=== PATIENT | male | born 1980 | race American Indian/Alaskan Native ===

== ENCOUNTER 2017-06-24 17:06 | Emergency (ER) | payer OTHER ==
[2017-06-24 18:08] VITALS: BP 114/73
[2017-06-24] MEDS ORDERED: MOTRIN PO ONE (18:08)
[2017-06-24] MEDS ORDERED: LIDOCAINE VISCOUS 2% PO ONE (21:33)
--- NOTE | 2017-06-24 21:33 | Emergency Department Report ---
ED ENT HPI - General Chief complaint: Sore Throat Stated complaint: THROAT SWELLING Time Seen by Provider: 06/24/17 21:33 Source: patient Mode of arrival: Ambulatory Limitations: No Limitations - History of Present Illness Initial comments: This is a 37-year-old male nontoxic, well nourished in appearance, no acute signs of distress presents to the ED with c/o of sore throat 2 days. Patient stated it is difficult for him to swallow S to pain. Patient describes sore throat as sensation as swallowing razor blades. Patient denies any recent travels, long car. Patient denies any sick contacts. Patient denies any drooling, hoarseness, fever, chest pain, shortness of breathe, chills, nausea, vomiting, headache or stiff neck. She denies any allergies or significant past medical history. MD complaint: sore throat -: days(s) (2) Location: throat Severity: mild Severity scale (0 -10): 8 Consistency: constant Improves with: none Worsens with: swallowing Associated Symptoms: pain with swallowing, sore throat. denies: fever, cough, gum swelling, toothache, tinnitus, hearing loss, discharge from ear, rhinorrhea - Related Data Previous Rx's Medication Instructions Recorded Last Taken Type Clindamycin [Clindamycin CAP] 300 mg PO Q8H 7 Days cap 06/24/17 Unknown Rx Ibuprofen [Motrin] 600 mg PO Q8H PRN #30 tablet 06/24/17 Unknown Rx Nystas/Diphen/Xyl Visc/Mylanta 15 ml MM Q4H PRN 7 Days ml 06/24/17 Unknown Rx [Magic Mouthwash] Allergies Allergy/AdvReac Type Severity Reaction Status Date / Time No Known Allergies Allergy Verified 06/24/17 21:38 ED Dental HPI - General Chief complaint: Sore Throat Stated complaint: THROAT SWELLING Time Seen by Provider: 06/24/17 21:33 Source: patient Mode of arrival: Ambulatory Limitations: No Limitations - Related Data Previous Rx's Medication Instructions Recorded Last Taken Type Clindamycin [Clindamycin CAP] 300 mg PO Q8H 7 Days cap 06/24/17 Unknown Rx Ibuprofen [Motrin] 600 mg PO Q8H PRN #30 tablet 06/24/17 Unknown Rx Nystas/Diphen/Xyl Visc/Mylanta 15 ml MM Q4H PRN 7 Days ml 06/24/17 Unknown Rx [Magic Mouthwash] Allergies Allergy/AdvReac Type Severity Reaction Status Date / Time No Known Allergies Allergy Verified 06/24/17 21:38 ED Review of Systems ROS: Stated complaint: THROAT SWELLING Other details as noted in HPI Constitutional: denies: chills, fever Eyes: denies: eye pain, eye discharge, vision change ENT: throat pain. denies: ear pain Respiratory: denies: cough, shortness of breath, wheezing Cardiovascular: denies: chest pain, palpitations Endocrine: no symptoms reported Gastrointestinal: denies: abdominal pain, nausea, diarrhea Genitourinary: denies: urgency, dysuria Musculoskeletal: denies: back pain, joint swelling, arthralgia Skin: denies: rash, lesions Neurological: denies: headache, weakness, paresthesias Psychiatric: denies: anxiety, depression Hematological/Lymphatic: denies: easy bleeding, easy bruising ED Past Medical Hx - Past Medical History Previous Medical History?: No - Surgical History Additional Surgical History: jaw - Social History Smoking Status: Current Every Day Smoker Substance Use Type: None - Medications Home Medications: Home Medications Medication Instructions Recorded Confirmed Last Taken Type Clindamycin [Clindamycin CAP] 300 mg PO Q8H 7 Days cap 06/24/17 Unknown Rx Ibuprofen [Motrin] 600 mg PO Q8H PRN #30 tablet 06/24/17 Unknown Rx Nystas/Diphen/Xyl Visc/Mylanta 15 ml MM Q4H PRN 7 Days ml 06/24/17 Unknown Rx [Magic Mouthwash] ED Physical Exam - General Limitations: No Limitations General appearance: alert, in no apparent distress - Head Head exam: Present: atraumatic, normocephalic - Eye Eye exam: Present: normal appearance Pupils: Present: normal accommodation - ENT ENT exam: Present: mucous membranes moist, TM's normal bilaterally, normal external ear exam - Expanded ENT Exam Expanded Ear exam: Present: normal external inspection Mouth exam: Present: normal external inspection, tongue normal. Absent: drooling, trismus, muffled voice, tongue elevation, laceration Teeth exam: Present: normal inspection Throat exam: Positive: tonsillar erythema, tonsillomegaly (2+), tonsillar exudate, other (Uvula midline. No abscess or swelling noted. ). Negative: R peritonsillar mass, L peritonsillar mass - Neck Neck exam: Present: normal inspection, full ROM, lymphadenopathy (bilateral tonsillar). Absent: tenderness, meningismus, thyromegaly - Respiratory Respiratory exam: Present: normal lung sounds bilaterally. Absent: respiratory distress, wheezes, rales, rhonchi, stridor, chest wall tenderness, accessory muscle use, decreased breath sounds, prolonged expiratory - Cardiovascular Cardiovascular Exam: Present: regular rate, normal rhythm, normal heart sounds. Absent: bradycardia, tachycardia, irregular rhythm, systolic murmur, diastolic murmur, rubs, gallop - GI/Abdominal GI/Abdominal exam: Present: soft, normal bowel sounds - Rectal Rectal exam: Present: deferred - Extremities Exam Extremities exam: Present: normal inspection, full ROM, normal capillary refill - Back Exam Back exam: Present: normal inspection, full ROM - Neurological Exam Neurological exam: Present: alert, oriented X3, normal gait - Psychiatric Psychiatric exam: Present: normal affect, normal mood - Skin Skin exam: Present: warm, dry, intact, normal color. Absent: rash ED Course Vital Signs 06/24/17 18:05 Temperature 98.2 F Pulse Rate 78 Respiratory 18 Rate Blood Pressure 114/73 O2 Sat by Pulse 98 Oximetry - Reevaluation(s) Reevaluation #1: 06/24/17 22:09 Patient is speaking in full sentences with no signs of distress noted. Critical care attestation.: If time is entered above; I have spent that time in minutes in the direct care of this critically ill patient, excluding procedure time. ED Disposition Clinical Impression: Tonsillitis with exudate Disposition: DC-01 TO HOME OR SELFCARE Is pt being admited?: No Does the pt Need Aspirin: No Condition: Stable Instructions: Tonsillitis (ED), Clindamycin (By mouth) Additional Instructions: Follow-up with a primary care doctor in 3-5 days or if symptoms worsen and continue return to emergency room as soon as possible. Prescriptions: Clindamycin [Clindamycin CAP] 300 mg PO Q8H 7 Days cap Ibuprofen [Motrin] 600 mg PO Q8H PRN #30 tablet PRN Reason: Pain Nystas/Diphen/Xyl Visc/Mylanta [Magic Mouthwash] 15 ml MM Q4H PRN 7 Days ml PRN Reason: Sore Throat Referrals: ALESSIA BASURTO MD [Primary Care Provider] - 3-5 Days PRIMARY CARE, [Referring] - 3-5 Days [facility] [Outside] - 3-5 Days Forms: Work/School Release Form(ED)
[2017-06-24] MEDS ORDERED: CLEOCIN IM ONE (21:52)
== END 2017-06-24 22:30 | disposition home or self-care (01) ==
LOC: ED 17:06
DX: J03.90 Acute tonsillitis, unspecified (principal); F17.200 Nicotine dependence, unspecified, uncomplicated
CPT/HCPCS: 96372; 99282

== ENCOUNTER 2020-08-27 06:42 | Emergency (ER) | payer SELFPAY ==
[2020-08-27] MEDS ORDERED: levETIRAcetam 1000 MG/NS 0.75% 1,000 MG/100 ML BAG IV ONE (07:39)
--- NOTE | 2020-08-27 07:55 | Emergency Department Report ---
HPI - General Chief Complaint: Neuro Symptoms/Deficit Time Seen by Provider: 08/27/20 07:38 - HPI HPI: Room 18 The patient is a 40-year-old male present with a chief complaint of seizures. The patient states he is amnestic to the events. Patient states his last memory includes watching television and then waking up with EMS around him. Patient's states that they went to bed and at approximate 04: 40 the patient entire body stiffened and he convulsed and this lasted approximately 10 minutes. She states the patient then went back to sleep and approximately 1 hour later 05: 40 had a second episode which lasted approximately 15 minutes and the patient has saliva coming from his mouth. Patient currently feels asymptomatic and denies having any complaints. Spouse states the patient had a similar episode last year but never sought medical attention. ED Past Medical Hx - Past Medical History Previous Medical History?: Yes Hx Asthma: Yes (As a child, no issues in adulthood) - Surgical History Past Surgical History?: Yes Additional Surgical History: jaw - Family History Family history: no significant - Social History Smoking Status: Current Every Day Smoker (1/2) Substance Use Type: None (Denies illicit drug use), Alcohol (Occasionally on the weekends) - Medications Home Medications: Home Medications Medication Instructions Recorded Confirmed Last Taken Type Ibuprofen [Motrin] 600 mg PO Q8H PRN #30 tablet 06/24/17 08/27/20 Unknown Rx Butalb/Acetamin/Caff 50-325-40 2 tab PO Q8HR PRN #10 tablet 08/27/20 Unknown Rx [Fioricet 50-325-40] levETIRAcetam [Keppra TAB] 500 mg PO BID #90 tablet 08/27/20 Unknown Rx ED Review of Systems ROS: Stated complaint: SEIZURE Other details as noted in HPI Constitutional: no symptoms reported Eyes: denies: eye pain ENT: denies: throat pain Respiratory: no symptoms reported Cardiovascular: denies: chest pain Endocrine: no symptoms reported Gastrointestinal: denies: abdominal pain Genitourinary: denies: dysuria Musculoskeletal: denies: back pain Neurological: denies: headache Physical Exam - Physical Exam Vital Signs: Vital Signs 08/27/20 08/27/20 08/27/20 06:44 06:48 07:33 Temperature 98.5 F 98.4 F Pulse Rate 95 H 76 Respiratory 18 15 Rate Blood Pressure 114/74 Blood Pressure 117/80 [Right] O2 Sat by Pulse 100 99 Oximetry 08/27/20 07:40 Temperature 98.4 F Pulse Rate 76 Respiratory 15 Rate Blood Pressure Blood Pressure 114/74 [Right] O2 Sat by Pulse 99 Oximetry Physical Exam: GENERAL: The patient is well-developed well-nourished male lying on stretcher not appearing to be in acute distress. [] HEENT: Normocephalic. Atraumatic. Extraocular motions are intact. Patient has moist mucous membranes. NECK: Supple. No meningitic signs are noted. Trachea midline CHEST/LUNGS: Clear to auscultation. There is no respiratory distress noted. HEART/CARDIOVASCULAR: Regular. There is no tachycardia. There is no gallop rub or murmur. ABDOMEN: Abdomen is soft, nontender. Patient has normal bowel sounds. There is no abdominal distention. SKIN: There is no rash. There is no edema. There is no diaphoresis. NEURO: The patient is awake, alert, and oriented. The patient is cooperative. The patient has no focal neurologic deficits. The patient has normal speech. Cranial nerves II through XII grossly intact. GCS 15 MUSCULOSKELETAL: There is no evidence of acute injury. ED Course Vital Signs 08/27/20 08/27/20 08/27/20 06:44 06:48 07:33 Temperature 98.5 F 98.4 F Pulse Rate 95 H 76 Respiratory 18 15 Rate Blood Pressure 114/74 Blood Pressure 117/80 [Right] O2 Sat by Pulse 100 99 Oximetry 08/27/20 07:40 Temperature 98.4 F Pulse Rate 76 Respiratory 15 Rate Blood Pressure Blood Pressure 114/74 [Right] O2 Sat by Pulse 99 Oximetry - Reevaluation(s) Reevaluation #1: 08/27/20 10:14 Patient had a generalized tonic-clonic seizure prior to Keppra administration. Patient was postictal but now awake. Patient states he has a slight headache. CT scan and labs reviewed with patient and family. Importance of follow-up with a neurologist for clearance prior to resuming driving or operating heavy machinery was stressed ED Medical Decision Making - Lab Data Result diagrams: 08/27/20 07:50 Laboratory Tests 08/27/20 08/27/20 07:50 09:55 Sodium 136 L Potassium 4.5 Chloride 98.2 Carbon Dioxide 26 Anion Gap 16 BUN 10 Creatinine 0.9 Estimated GFR > 60 BUN/Creatinine Ratio 11 Glucose 95 Calcium 9.4 Magnesium 2.30 Total Creatine Kinase 260 H CK-MB (CK-2) 2.0 CK-MB (CK-2) Rel Index 0.7 Urine Opiates Screen Negative Urine Methadone Screen Negative Ur Barbiturates Screen Negative Ur Phencyclidine Scrn Negative Ur Amphetamines Screen Negative U Benzodiazepines Scrn Negative Urine Cocaine Screen Negative U Marijuana (THC) Screen Negative - EKG Data -: EKG Interpreted by Ms EKG shows normal: sinus rhythm Rate: tachycardia (106 bpm) - EKG Data When compared to previous EKG there are: previous EKG unavailable Interpretation: other (No ischemic changes seen) - Radiology Data Radiology results: report reviewed (CT head), image reviewed (CT head) [facility] [address] [place] [address] Cat Scan Report Signed Patient: CANDIDO TRAYLOR MR#: [id number] : 1980 Acct:[id number] Age/Sex: 40 / M ADM Date: 08/27/20 Loc: ED Attending Dr: Ordering Physician: DENNYS SKINNER MD Date of Service: 08/27/20 Procedure(s): CT head/brain wo con Accession Number(s): [id number] cc: DENNYS SKINNER MD CT HEAD WITHOUT CONTRAST INDICATION: Seizure-like activity. TECHNIQUE: All CT scans at this location are performed using CT dose reduction for ALARA by means of automated exposure control. COMPARISON: None available. FINDINGS: HEMORRHAGE: None. EXTRA-AXIAL SPACES: Normal in size and morphology for the patient's age. VENTRICULAR SYSTEM: Normal in size and morphology for the patient's age. BRAIN PARENCHYMA: No acute findings. MIDLINE SHIFT OR HERNIATION: None. ORBITS: Normal as visualized. SOFT TISSUES OF HEAD: Normal. CALVARIUM: Normal. VISUALIZED PARANASAL SINUSES AND MASTOID AIR CELLS: Clear. ADDITIONAL FINDINGS: None. IMPRESSION: 1. No acute intracranial abnormality. Signer Name: Malcolm Villa MD Signed: 08/27/2020 8:58 AM Workstation Name: [id number] Transcribed By: CECI Dictated By: Malcolm Villa MD Electronically Authenticated By: Malcolm Villa MD Signed Date/Time: 08/27/20 0858 DD/ TD/TT: Print Cancel - Differential Diagnosis Epilepsy, intracranial mass, ICH, electrolyte abnormality Critical care attestation.: If time is entered above; I have spent that time in minutes in the direct care of this critically ill patient, excluding procedure time. ED Disposition Clinical Impression: Seizures Disposition: DC-01 TO HOME OR SELFCARE Is pt being admited?: No Does the pt Need Aspirin: No Condition: Stable Instructions: Epilepsy, [id number], Seizure, Adult, [id number] Additional Instructions: You should not drive, operate heavy machinery or swim unattended until you are cleared by a neurologist. Return to the emergency department should you develop worsening symptoms, inability to tolerate food or liquids, high fever or any other concerns Prescriptions: Butalb/Acetamin/Caff 50-325-40 [Fioricet 50-325-40] 2 tab PO Q8HR PRN #10 tablet PRN Reason: Headache levETIRAcetam [Keppra TAB] 500 mg PO BID #90 tablet Referrals: ROSE RICO MD [Staff Physician] - [facility] (Dr. Rico is a neurologist. Please follow-up with him for further evaluation. You should not drive, operate heavy machinery or swim unattended until you are cleared by a neurologist) Time of Disposition: 10:17
[2020-08-27] MEDS ORDERED: LORazepam 2 MG/ML VIAL ONE (08:05)
[2020-08-27] MEDS ORDERED: SODIUM CHLORIDE 0.9% 1000 ML 1,000 ML IV ONE (08:08)
[2020-08-27] MEDS ORDERED: LORazepam 2 MG/ML VIAL IV ONE (08:08)
--- NOTE | 2020-08-27 09:02 | Cat Scan Report ---
CT HEAD WITHOUT CONTRAST INDICATION: Seizure-like activity. TECHNIQUE: All CT scans at this location are performed using CT dose reduction for ALARA by means of automated e xposure control. COMPARISON: None available. FINDINGS: HEMORRHAGE: None. EXTRA-AXIAL SPACES: Normal in size and morphology for the patient's age. VENTRICULAR SYSTEM: Normal in size and morphology for the patient's age. BRAIN PARENCHYMA: No acute findings. MIDLINE SHIFT OR HERNIATION: None. ORBITS: Normal as visualized. SOFT TISSUES OF HEAD: Normal. CALVARIUM: Normal. VISUALIZED PARANASAL SINUSES AND MASTOID AIR CELLS: Clear. ADDITIONAL FINDINGS: None. IMPRESSION: 1. No acute intracranial abnormality. Signer Name: Malcolm Villa MD Signed: 08/27/2020 8:58 AM Workstation Name: [id number]
[2020-08-27 09:03] VITALS: BP 120/79
[2020-08-27 09:05] LABS: BUN/Creatinine Ratio 11; Blood Urea Nitrogen 10 mg/dL (9-20); Calcium 9.4 mg/dL (8.4-10.2); Hemolysis Index 11
[2020-08-27 10:09] LABS: Amphetamine Screen,Urine Negative; Benzodiazepines Screen,Urine Negative; Cannabinoid Screen,Urine Negative; Cocaine Screen,Urine Negative; Methadone Screen,Urine Negative; Opiate Screen,Urine Negative
[2020-08-27] MEDS ORDERED: BUTALB/ACETAMINOPHEN/CAFFEINE TAB PO ONE (10:14)
--- NOTE | 2020-08-30 09:48 | Electrocardiograph Report ---
[facility] Test Date: 2020-08-27 Test Time: 08:21:53 Pat Name: CANDIDO TRAYLOR Department: Room: Gender: M Environmental Programs Manager: MARIAM : 1980 Requested By: DENNYS SKINNER Order Number: [id number] Reading MD: Jr Moreira Measurements Intervals [place] Rate: 106 P: NC: QRS: 40 QRSD: 82 T: 39 QT: 347 QTc: 462 Interpretive Statements Junctional tachycardia No previous ECG available for comparison Electronically Signed On 08-30-2020 9:47:54 EDT by Jr Moreira
== END 2020-08-27 11:20 | disposition home or self-care (01) ==
LOC: ED 06:42
DX: R56.9 Unspecified convulsions (principal); J45.909 Unspecified asthma, uncomplicated; F17.200 Nicotine dependence, unspecified, uncomplicated; Z79.899 Other long term (current) drug therapy
CPT/HCPCS: 36415; 70450; 80048; 80307; 82550; 82553; 83735; 93005; 96361; 96365; 96375; 99284; J1953; J2060; J7030

== ENCOUNTER 2021-02-17 16:20 | Emergency (ER) | payer SELFPAY ==
[2021-02-17] MEDS ORDERED: levETIRAcetam 1000 MG/NS 0.75% 1,000 MG/100 ML BAG IV ONE ×2 (16:48)
--- NOTE | 2021-02-17 16:51 | Emergency Department Report ---
ED General Adult HPI - General Chief complaint: Seizure Stated complaint: seizures PUI?: No Time Seen by Provider: 02/17/21 16:29 Source: patient, EMS ( EMS documentation not available at time of chart dictation ), RN notes reviewed, old records reviewed Mode of arrival: Stretcher Limitations: No Limitations - History of Present Illness Initial comments: Patient is a 40-year-old gentleman. He is not known to myself previously. He believes that he has a history of seizure disorder. He was seen in this department a few months ago for seizure/convulsion. He had an unremarkable laboratory work-up, an unremarkable noncontrast CT scan of the brain, and was discharged with Keppra. He is brought to the hospital today with a complaint of painless seizures. They are now resolved. Patient was given prescription for Keppra, but he has not been taking Keppra because he did not think he had to take it every day. Patient does not have an outpatient neurologist or primary care doctor that he is aware of. He occasionally smokes cigarettes, and drinks alcohol. He denies recreational drugs. At the moment, he denies all physical pain. He denies cough and congestion as well as urinary symptoms. He is asking to be discharged at this time. Last convulsion was a few months ago. -: Sudden Severity scale (0 -10): 0 Consistency: now resolved Improves with: none Worsens with: none Associated Symptoms: denies other symptoms - Related Data Previous Rx's Medication Instructions Recorded Last Taken Type Ibuprofen [Motrin] 600 mg PO Q8H PRN #30 tablet 06/24/17 Unknown Rx levETIRAcetam [Keppra TAB] 500 mg PO BID #60 tablet 02/17/21 Unknown Rx Allergies Allergy/AdvReac Type Severity Reaction Status Date / Time No Known Allergies Allergy Verified 06/24/17 21:38 ED Review of Systems ROS: Stated complaint: seizures Other details as noted in HPI Comment: All other systems reviewed and negative Neurological: other (Seizures, now resolved) ED Past Medical Hx - Past Medical History Previous Medical History?: Yes Hx Seizures: Yes Hx Asthma: Yes (As a child, no issues in adulthood) - Surgical History Past Surgical History?: Yes Additional Surgical History: jaw - Social History Smoking Status: Current Every Day Smoker Substance Use Type: Alcohol - Medications Home Medications: Home Medications Medication Instructions Recorded Confirmed Last Taken Type Ibuprofen [Motrin] 600 mg PO Q8H PRN #30 tablet 06/24/17 08/27/20 Unknown Rx levETIRAcetam [Keppra TAB] 500 mg PO BID #60 tablet 02/17/21 Unknown Rx ED Physical Exam - General Limitations: No Limitations General appearance: alert, in no apparent distress - Head Head exam: Present: atraumatic, normocephalic - Eye Eye exam: Present: normal appearance, PERRL, EOMI. Absent: nystagmus - ENT ENT exam: Present: normal exam, normal orophraynx, mucous membranes moist, normal external ear exam - Neck Neck exam: Present: normal inspection, full ROM. Absent: tenderness, meningismus - Respiratory Respiratory exam: Present: normal lung sounds bilaterally. Absent: respiratory distress, wheezes, rales, rhonchi, stridor, decreased breath sounds - Cardiovascular Cardiovascular Exam: Present: regular rate, normal rhythm, normal heart sounds. Absent: bradycardia, tachycardia, irregular rhythm, systolic murmur, diastolic murmur, rubs, gallop - GI/Abdominal GI/Abdominal exam: Present: soft. Absent: distended, tenderness, guarding, rebound, rigid, pulsatile mass - Rectal Rectal exam: Present: deferred - Extremities Exam Extremities exam: Present: normal inspection, full ROM, other (2+ pulses noted in the bilateral upper and lower extremities. There is no palpable cord. negative Homans sign. Muscular compartments are soft. The pelvis is stable.). Absent: pedal edema, calf tenderness - Back Exam Back exam: Present: normal inspection, full ROM. Absent: tenderness, CVA tenderness (R), CVA tenderness (L), paraspinal tenderness, vertebral tenderness - Neurological Exam Neurological exam: Present: alert, oriented X3, normal gait, other (No facial droop. Tongue midline. Extraocular movements intact bilaterally. Facial sensation intact to light touch in V1, V2, V3 distribution bilaterally. 5 and a 5 strength in 4 extremities. Sensation intact to light touch in 4 extremities.). Absent: motor sensory deficit - Psychiatric Psychiatric exam: Present: normal affect, normal mood - Skin Skin exam: Present: warm, dry, intact, normal color. Absent: rash ED Course Vital Signs 02/17/21 02/17/21 02/17/21 16:23 16:38 16:39 Temperature 99 F Pulse Rate 72 84 Respiratory 18 10 L 14 Rate Blood Pressure Blood Pressure 128/88 [Left] O2 Sat by Pulse 96 98 Oximetry 02/17/21 02/17/21 02/17/21 16:46 17:00 17:30 Temperature Pulse Rate 90 78 79 Respiratory 11 L 15 16 Rate Blood Pressure 122/77 129/87 124/84 Blood Pressure [Left] O2 Sat by Pulse 99 97 98 Oximetry 02/17/21 02/17/21 18:00 18:30 Temperature Pulse Rate 78 81 Respiratory 23 13 Rate Blood Pressure 119/81 123/81 Blood Pressure [Left] O2 Sat by Pulse 98 99 Oximetry ED Medical Decision Making - Lab Data Vital Signs 02/17/21 02/17/21 02/17/21 16:23 16:38 16:39 Temperature 99 F Pulse Rate 72 84 Respiratory 18 10 L 14 Rate Blood Pressure Blood Pressure 128/88 [Left] O2 Sat by Pulse 96 98 Oximetry 02/17/21 02/17/21 02/17/21 16:46 17:00 17:30 Temperature Pulse Rate 90 78 79 Respiratory 11 L 15 16 Rate Blood Pressure 122/77 129/87 124/84 Blood Pressure [Left] O2 Sat by Pulse 99 97 98 Oximetry 02/17/21 02/17/21 18:00 18:30 Temperature Pulse Rate 78 81 Respiratory 23 13 Rate Blood Pressure 119/81 123/81 Blood Pressure [Left] O2 Sat by Pulse 98 99 Oximetry Lab Results 02/17/21 Range/Units 17:16 POC Glucose 99 (70-105) mg/dL - EKG Data -: EKG Interpreted by Vt EKG shows normal: sinus rhythm Rate: normal - EKG Data 02/17/21 19:28 EKG is interpreted by myself at 16: 57 Sinus rhythm, 75 bpm. Normal axis, normal intervals, high left ventricular voltage, and motion artifact. Abnormal EKG. Not a STEMI. - Radiology Data Radiology results: pending, report reviewed, image reviewed Prior noncontrast CT scan of the brain reviewed and appreciated, negative for acute findings - Medical Decision Making Differential diagnosis, including but not limited to: Seizure, noncompliance, medication refill Assessment and plan: 40-year-old gentleman, who was afebrile, with reassuring vital signs, clinically sober, with a GCS of 15, NIH score of 0, who is awake, alert, oriented, walks with a steady gait, denies physical pain, chest pain abdominal pain, observed in this ER for hours after convulsive event, as per review of old documentation and charting, has had prior events, but has not recently followed up with outpatient primary care and/or neurology. Patient counseled as to the importance of remaining compliant with seizure medication. Counseled to not drive or operate motor vehicles for the next 6 months. He is low with 2 g of Keppra here in the emergency room. He will be discharged with prescription for Keppra. Counseled to follow-up with outpatient primary care, and/or neurology. Return precautions reviewed. All questions answered. Accu- Chek acceptable and within normal limits. Patient asking to be discharged at this time Critical care attestation.: If time is entered above; I have spent that time in minutes in the direct care of this critically ill patient, excluding procedure time. ED Disposition Clinical Impression: History of convulsions, Medication refill Disposition: HOME / SELF CARE / HOMELESS Is pt being admited?: No Does the pt Need Aspirin: No Condition: Good Instructions: Seizure, Adult, [id number] Additional Instructions: Please do not drive or operate motor vehicles for the next 6 months, or until cleared to do so by your primary care doctor or neurologist. Please take the Keppra medication as prescribed, twice daily, and make every effort to not miss any doses. Please avoid consumption of alcohol, tobacco, smoke products, please follow-up with an outpatient neurologist or primary care doctor within the next 5 to 7 days for a repeat checkup or evaluation. Please return to the emergency room right away with new pain, worsened pain, migration of pain, projectile vomiting, change in mental status, confusion, inability to tolerate liquid feeds, recurrent convulsive event, or any new, worsened or different symptoms not present on the initial emergency room evaluation Referrals: YOSHI ALVAREZ MD [Referring] - 3-5 Days ROSE RICO MD [Staff Physician] - 3-5 Days [facility] [Provider Group] - 3-5 Days Forms: Work/School Release Form(ED)
[2021-02-17 18:39] VITALS: BP 123/81
== END 2021-02-17 19:50 | disposition home or self-care (01) ==
LOC: ED 16:20
DX: Z86.69 Personal history of other diseases of the nervous system and sense organs (principal); Z76.0 Encounter for issue of repeat prescription; F17.200 Nicotine dependence, unspecified, uncomplicated; F10.20 Alcohol dependence, uncomplicated; J45.909 Unspecified asthma, uncomplicated
CPT/HCPCS: 82962; 93005; 96365; 96368; 99283; J1953

== ENCOUNTER 2021-06-09 23:04 | Emergency (ER) | payer SELFPAY ==
--- NOTE | 2021-06-10 01:48 | Emergency Department Report ---
ED Seizure HPI - General Chief Complaint: Seizure Stated Complaint: SEIZURES Time Seen by Provider: 06/10/21 00:28 Source: patient, family Mode of arrival: Wheelchair Limitations: Physical Limitation - History of Present Illness Initial Comments: This patient has a history of seizure disorder and is supposed to be on Keppra. The patient has not been compliant with his medications because it causes drowsiness. The patient had a seizure episode prior to arrival in the emergency department which occurred at work. At this time the patient appears to be post ictal with minimal information obtained from him however his significant other was able to supply some information. The patient has not been able to find a neurologist for follow-up however according to his significant other he just recently obtained insurance and should be able to arrange a follow-up visit. Complaint: seizure -: Sudden, hour(s) (1.5) - Related Data Previous Rx's Medication Instructions Recorded Last Taken Type Ibuprofen [Motrin] 600 mg PO Q8H PRN #30 tablet 06/24/17 Unknown Rx levETIRAcetam [Keppra TAB] 500 mg PO BID #60 tablet 02/17/21 Unknown Rx Allergies Allergy/AdvReac Type Severity Reaction Status Date / Time No Known Allergies Allergy Verified 06/24/17 21:38 ED Review of Systems ROS: Stated complaint: SEIZURES Other details as noted in HPI Comment: All other systems reviewed and negative Musculoskeletal: denies: myalgia Neurological: denies: headache, weakness, numbness Psychiatric: denies: anxiety, depression ED Past Medical Hx - Past Medical History Hx Seizures: Yes Hx Asthma: Yes (As a child, no issues in adulthood) - Surgical History Additional Surgical History: jaw - Social History Smoking Status: Current Every Day Smoker Substance Use Type: Alcohol - Medications Home Medications: Home Medications Medication Instructions Recorded Confirmed Last Taken Type Ibuprofen [Motrin] 600 mg PO Q8H PRN #30 tablet 06/24/17 08/27/20 Unknown Rx levETIRAcetam [Keppra TAB] 500 mg PO BID #60 tablet 02/17/21 Unknown Rx ED Physical Exam - General Limitations: Physical Limitation (The patient appears post ictal and is slow to respond) General appearance: obtunded - Head Head exam: Present: atraumatic, normocephalic - Eye Eye exam: Present: normal appearance, PERRL, EOMI - ENT ENT exam: Present: mucous membranes moist - Neck Neck exam: Present: normal inspection - Respiratory Respiratory exam: Present: normal lung sounds bilaterally. Absent: respiratory distress - Cardiovascular Cardiovascular Exam: Present: regular rate, normal rhythm. Absent: systolic murmur, diastolic murmur, rubs, gallop - GI/Abdominal GI/Abdominal exam: Present: soft, normal bowel sounds - Rectal Rectal exam: Present: deferred - Extremities Exam Extremities exam: Present: normal inspection, full ROM - Skin Skin exam: Present: warm, dry, intact, normal color. Absent: rash ED Course Vital Signs 06/10/21 06/10/21 06/10/21 00:20 00:30 00:31 Temperature 98.2 F Pulse Rate 78 78 Respiratory 18 14 14 Rate Blood Pressure 158/107 135/86 Blood Pressure [Right] O2 Sat by Pulse 100 99 99 Oximetry 06/10/21 06/10/21 06/10/21 00:45 01:01 01:15 Temperature Pulse Rate 74 79 82 Respiratory 17 16 20 Rate Blood Pressure 143/98 138/96 133/90 Blood Pressure [Right] O2 Sat by Pulse 99 99 98 Oximetry 06/10/21 06/10/21 06/10/21 01:30 01:45 02:00 Temperature Pulse Rate 72 74 73 Respiratory 17 18 18 Rate Blood Pressure 133/90 137/94 137/94 Blood Pressure [Right] O2 Sat by Pulse 98 98 98 Oximetry 06/10/21 06/10/21 06/10/21 02:15 02:30 02:45 Temperature Pulse Rate 72 91 H 70 Respiratory 10 L 15 17 Rate Blood Pressure 147/99 147/99 Blood Pressure [Right] O2 Sat by Pulse 99 99 99 Oximetry 06/10/21 06/10/21 06/10/21 03:00 03:15 03:30 Temperature Pulse Rate 99 H 89 83 Respiratory 20 18 15 Rate Blood Pressure 165/99 165/99 Blood Pressure [Right] O2 Sat by Pulse 99 99 98 Oximetry 06/10/21 06/10/21 06/10/21 03:45 04:00 04:15 Temperature Pulse Rate 83 84 74 Respiratory 17 19 17 Rate Blood Pressure 165/99 Blood Pressure [Right] O2 Sat by Pulse 98 97 98 Oximetry 06/10/21 06/10/21 06/10/21 04:31 04:45 05:03 Temperature Pulse Rate 69 72 79 Respiratory 16 14 16 Rate Blood Pressure Blood Pressure [Right] O2 Sat by Pulse 98 96 94 Oximetry 06/10/21 05:40 Temperature Pulse Rate 67 Respiratory 15 Rate Blood Pressure Blood Pressure 131/85 [Right] O2 Sat by Pulse 97 Oximetry - Reevaluation(s) Reevaluation #1: I reevaluated the patient prior to discharge. He was now noted to be alert and cooperative. I explained to the patient the need to take his medications as prescribed in order to avoid recurrence of seizures with potential for significant injury. The patient stated he understood this. This information was also imparted to his significant other at the time of initial evaluation. ED Medical Decision Making - Radiology Data Radiology results: report reviewed Per the radiologist interpretation there was no evidence of intracranial injury. - Medical Decision Making After period of observation the patient was noted to have improvement of his symptoms became alert and oriented and very cooperative. His seizure was felt to be secondary to noncompliance and less likely to be a breakthrough seizure. The patient was subsequently discharged home and asked to follow-up with a neurologist as soon as possible take his medicines as prescribed return to the emergency department if any problems Critical care attestation.: If time is entered above; I have spent that time in minutes in the direct care of this critically ill patient, excluding procedure time. ED Disposition Clinical Impression: Seizures, generalized convulsive, Noncompliance with medication regimen Disposition: 01 HOME / SELF CARE / HOMELESS Is pt being admited?: No Does the pt Need Aspirin: No Condition: Stable Instructions: Epilepsy, [id number] Additional Instructions: Please take your medications as prescribed and follow-up with a neurologist as soon as possible. Please note that if you do not take your anticonvulsant medication you are at a higher risk of having seizures, which could result in significant injuries. Return to the emergency department if any problems. Referrals: TESSY COOLEY MD [Primary Care Provider] - 3-5 Days
[2021-06-10] MEDS ORDERED: levETIRAcetam 1000 MG/NS 0.75% 1,000 MG/100 ML BAG IV ONE (01:49)
--- NOTE | 2021-06-10 03:07 | Cat Scan Report ---
CT head/brain wo con INDICATION / CLINICAL INFORMATION: seizure. TECHNIQUE: Axial CT imaging of the brain was obtained without contrast. Coronal and sagittal reformatted imaging obtained and reviewed. All CT scans at this location are performed using CT dose reduction for ALAR A by means of automated exposure control. COMPARISON: Prior CT brain 08/27/2020 FINDINGS: No intracranial hemorrhage, mass, or midline shift is noted. No extra-axial fluid collection or sugge stion of acute territorial infarction. Ventricular system and basilar cisterns are unremarkable. Visualized paranasal sinuses and mastoid air cells are well aerated and clear. No calvarial abnormali ty. IMPRESSION: 1. No acute intracranial abnormality. Signer Name: Tammy Rojo MD Signed: 06/10/2021 3:03 AM Workstation Name: [id number]
[2021-06-10 05:48] VITALS: BP 131/85
== END 2021-06-10 05:40 | disposition home or self-care (01) ==
LOC: ED 23:04
DX: G40.909 Epilepsy, unspecified, not intractable, without status epilepticus (principal); Z91.14 Patient's other noncompliance with medication regimen; F17.200 Nicotine dependence, unspecified, uncomplicated; F10.20 Alcohol dependence, uncomplicated; J45.909 Unspecified asthma, uncomplicated
CPT/HCPCS: 70450; 96365; 99284; J1953